=== PATIENT | female | born 1940 | race Hispanic/Latino ===

== ENCOUNTER 2016-11-19 11:52 | Outpatient (CLI) | payer MEDICARE, OTHER ==
--- NOTE | 2016-11-19 12:40 | XRay Report ---
LEFT HIP THREE VIEWS: 11/19/16 11:52:00 CLINICAL: Pain. No comparison. FINDINGS: Status post left total hip replacement with normal appearance of the prosthesis. No apparent loosening. No fracture or dislocation. 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 Mild bilateral SI joint sclerosis. Normal soft tissues. 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
== END 2016-11-19 11:53 | disposition home or self-care (01) ==
LOC: SPVIMAG 11:52
PROVIDERS: ATTEND Internal Medicine
DX: M16.11 Unilateral primary osteoarthritis, right hip (principal); Z96.642 Presence of left artificial hip joint